=== PATIENT | female | born 1940 | race Caucasian/White ===

== ENCOUNTER 2016-11-20 18:50 | Emergency (ER) | payer OTHER, MEDICARE, BC ==
[2016-11-20 19:08] VITALS: BP 140/71
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
[2016-11-20] MEDS ORDERED: ACETAMINOPHEN 325 MG TABLET PO ONE (20:55)
== END 2016-11-20 21:24 | disposition home or self-care (01) ==
LOC: ER 18:50
DX: S80.02XA Contusion of left knee, initial encounter (principal); S80.01XA Contusion of right knee, initial encounter; S50.312A Abrasion of left elbow, initial encounter; S50.311A Abrasion of right elbow, initial encounter; S20.211A Contusion of right front wall of thorax, initial encounter; S09.90XA Unspecified injury of head, initial encounter; M54.2 Cervicalgia; R51 Headache; R07.9 Chest pain, unspecified; M25.561 Pain in right knee; M25.562 Pain in left knee; M79.642 Pain in left hand; M79.641 Pain in right hand; V87.7XXA Person injured in collision between other specified motor vehicles (traffic), initial encounter; Z87.891 Personal history of nicotine dependence
CPT/HCPCS: 99284; 71020; 73130; 73560; 70450; 72125; L0120